=== PATIENT | male | born 1965 | race Caucasian/White ===

== ENCOUNTER → 2016-09-30 | Outpatient (CLI) | payer OTHER ==
[~2016-09-30] MED LIST: ACET325T38 PO; AZIT250T81 PO; IBP200T PO; MULT-406 PO; ONDA4TAB41 PO; OXYC1TAB12 PO; ROPIVACAINE 1% 10 MG/ML (NAROPIN) 10 ML AMPUL ONE; SODIUM CHLORIDE VIAL (PF) 20 ML IV ONE; methylPREDNISolone 80 MG/ML (DEPO MEDROL) VIAL IM ONE
--- NOTE | 2016-09-30 16:09 | Diagnostic Imaging Report ---
INDICATION: Chronic radicular pain. EXAM: Frontal views obtained with lateral flexion and extension views. COMPARISON: 12/29/2015. FINDINGS: Interbody devices are present at L3-4, L4-5 and L5-S1. The pedicle screws and fusion rods are present at L5-S1. Anterior fusion changes are noted at L5-S1. With flexion and extension, there is no significant change in vertebral body alignment. Mild degenerative changes are present in the lower thoracic spine. Sacroiliac joints are negative. No osteolytic or osteoblastic lesion is identified. IMPRESSION: Postoperative interbody and anterior and posterior fusion changes. Otherwise, negative. Dictated by: Dictated on workstation # [id number]
--- NOTE | 2016-10-03 08:35 | PAIN MANAGEMENT ---
Date of note: 09/30/2016 Procedure: SI joint injection This is a 51-year-old male patient under the care of Dr. Lefty Barlow. The patient was referred to anesthesia for the purpose of bilateral SI joint injections secondary to bilateral sacroiliitis. The patient has had back surgery in the past from a physician in [place]. He is improved with his back pain, but had bilateral hip pain. He then flew back to [place] to see this physician where he was diagnosed with bilateral sacroiliitis. He got SI joint injections at that time. That has been since last March. The physician stated at that point in time, he should get bilateral SI joint injections if he has any further problems. The patient received a massage that may have been too aggressive. He is complaining of low back pain, primarily at his sacroiliac joint. He is tender upon palpation on both sides. He presents today wishing to repeat bilateral SI joint injections. Based on presentation and orders received from Dr. Lara, we decided to proceed forward with a bilateral SI joint injection. Informed consent was obtained and the patient was taken to the operating room for the use of fluoroscopic guidance for needle tip placement. He was placed in a prone position. Landmarks were identified and aseptic technique utilized. The skin was localized with 3 mL of 1% lidocaine plain on both sides. This required additional localization utilizing 0.25% ropivacaine for additional 5 mL on each side. After localization a 22-gauge spinal needle was advanced first to the SI joint space. Negative aspiration of heme, negative paresthesia. Isovue 240, 0.5 mL was injected with good spread noted. Injected was Depo-Medrol 80 mg and ropivacaine 0.2% in normal saline for a total of 10 mL. That needle was then removed. The procedure was repeated on the right side with the same medications given. The spread of the Isovue 240 was not quite as good on the right side, however, it did still track. Depo-Medrol 80 mg and ropivacaine 0.2% of normal saline for a total of 10 mL was injected again. The needles were removed and Band-Aids placed over both sites. The patient was turned to the sitting position where he remained for approximately 5 minutes. He was then able to walk back to the [facility] where vital signs were taken. He is released with vital signs stable and faculties intact. He is asked to follow me via my cell phone in 3 days. He is asked to follow up with my cell phone in 3 days. The patient states he understands the discharge instructions and I will follow him from there.
== END ==
LOC: PMC 13:11
PROVIDERS: ATTEND Family Medicine
DX: M46.1 Sacroiliitis, not elsewhere classified (principal)
CPT/HCPCS: 27096; 72110; J1040; J2795; J7050

== ENCOUNTER → 2016-11-03 | Outpatient (CLI) | payer OTHER ==
[~2016-11-03] MED LIST changes: -ROPIVACAINE 1% 10 MG/ML (NAROPIN) 10 ML AMPUL ONE; -SODIUM CHLORIDE VIAL (PF) 20 ML IV ONE; -methylPREDNISolone 80 MG/ML (DEPO MEDROL) VIAL IM ONE
== END ==
LOC: LAB 11:04
PROVIDERS: ATTEND Family Medicine
DX: Z01.818 Encounter for other preprocedural examination (principal)
CPT/HCPCS: 87081